=== PATIENT | female | born 1995 | race Caucasian/White ===

== ENCOUNTER 2023-08-16 21:11 | Emergency (ER) | payer OTHER ==
[2023-08-16 21:17] VITALS: BP 104/64; PULSE 115; RESP 18; TEMP 101.3; BMI 27.3
[2023-08-16 22:47] LABS: URINE APPEARANCE CLEAR; URINE BILIRUBIN NEGATIVE (NEGATIVE); URINE COLOR YELLOW; URINE GLUCOSE (UA) NEGATIVE (NEGATIVE); URINE KETONE TRACE (NEGATIVE); URINE LEUK ESTERASE NEGATIVE (NEGATIVE); URINE NITRITE NEGATIVE (NEGATIVE); URINE PROTEIN NEGATIVE (NEGATIVE); URINE UROBILINOGEN 0.2 mg/dL (0.2-1.0)
[2023-08-16] MEDS ORDERED: ACETAMINOPHEN 325 MG TABLET (FP) ONE (22:53)
[2023-08-16] MEDS: ACETAMINOPHEN 325 MG TABLET (FP) PO ONE (22:55)
== END 2023-08-16 22:56 | disposition home or self-care (01) ==
LOC: JER 21:11
DX: O98.512 Other viral diseases complicating pregnancy, second trimester (principal); U07.1 COVID-19; O99.891 Other specified diseases and conditions complicating pregnancy; R50.9 Fever, unspecified; R51.9 Headache, unspecified; R05.9 Cough, unspecified; M79.10 Myalgia, unspecified site; O99.512 Diseases of the respiratory system complicating pregnancy, second trimester; J02.9 Acute pharyngitis, unspecified; Z3A.15 15 weeks gestation of pregnancy
CPT/HCPCS: 81003; 87086; 99283-25